=== PATIENT | female | born 1970 | race American Indian/Alaskan Native ===

== ENCOUNTER 2017-09-12 09:22 | Outpatient (CLI) | payer OTHER ==
--- NOTE | 2017-09-12 20:22 | XRay Report ---
FINAL REPORT EXAM: XR KNEE BILAT 3V HISTORY: KNEE BACK PROBLEM, HIGH BLOOD PRESSURE TECHNIQUE: Left knee three views and right knee three views PRIORS: None. FINDINGS: No fracture is identified. No dislocation seen. No evidence of joint effusion. Joint spaces are within normal limits.. No acute bony abnormality identified. IMPRESSION: Negative bilateral knee series
== END 2017-09-12 09:23 | disposition home or self-care (01) ==
LOC: XRAY 09:22 → EDBD 09:22 → XRAY 09:23
PROVIDERS: ATTEND Internal Medicine
DX: M25.861 Other specified joint disorders, right knee (principal); M25.862 Other specified joint disorders, left knee; I10 Essential (primary) hypertension; F32.9 Major depressive disorder, single episode, unspecified; F41.9 Anxiety disorder, unspecified; F43.10 Post-traumatic stress disorder, unspecified; G56.00 Carpal tunnel syndrome, unspecified upper limb; R60.9 Edema, unspecified; X58.XXXA Exposure to other specified factors, initial encounter; Y93.89 Activity, other specified; Y92.89 Other specified places as the place of occurrence of the external cause; Y99.8 Other external cause status